=== PATIENT | male | born 1985 | race Hispanic/Latino ===

== ENCOUNTER 2023-08-17 18:47 | Emergency (ER) | payer OTHER, SELFPAY ==
[2023-08-17] MEDS ORDERED: Acetaminophen 500 MG TAB ONE (19:15)
[2023-08-17] MEDS ORDERED: Ibuprofen 800 MG TAB ONE (19:15)
[2023-08-17 19:19] LABS: #Eosinphils 0.1 thou/uL (0.0-0.7); #Monocytes 0.7 thou/uL (0.11-0.59); #Neutrophils 5.3 thou/uL (1.40-6.50); %Basophils 0.6 % (0.0-1.0); %Eosinophils 1.2 % (0.0-10.0); %Lymphocytes 14.3 % (21.0-51.0); %Monocytes 9.4 % (0.0-10.0); %Neutrophils 74.6 % (42.0-75.0); Hematocrit 50.6 % (42.0-52.0); Mean Corpuscular HGB CONC 33.5 g/dL (32.0-36.0); Mean Corpuscular Hemoglobin 31.3 pg (27.0-31.0); Mean Corpuscular Volume 93.5 fl (78.0-98.0); Mean Platelet Volume 8.6 fL (7.4-10.4); Platelet Count 225 10x3/uL (130-400); RBC Distribution Width 12.7 % (11.5-14.5); Red Blood Cell (RBC) Count 5.41 mill/uL (4.70-6.10); White Blood Cell (WBC) Count 7.1 10x3/uL (4.8-10.8)
[2023-08-17 19:29] LABS: INR-International Normal Ratio 0.9; Prothrombin Time 12.8 sec (12.0-14.7)
[2023-08-17 19:31] LABS: PTT 29.9 sec (22.9-36.1)
[2023-08-17] MEDS ORDERED: cefTRIAXone (ROCEPHIN) 2 GM VIAL ONE (19:35)
[2023-08-17] MEDS ORDERED: Sodium Chloride 0.9% 100 ML ONE (19:35)
[2023-08-17] MEDS ORDERED: Ipratropium/Albuterol 3 ML NEB ONE (19:35)
[2023-08-17 19:36] LABS: ALT (SGPT) 48 U/L (8-55); AST (SGOT) 28 U/L (5-34); Albumin 4.3 g/dL (3.5-5.0); Alkaline Phosphatase 72 U/L (40-110); Anion Gap 15 mmol/L (10-20); BUN (Urea Nitrogen) 10 mg/dL (8.9-20.6); Bilirubin, Total 0.8 mg/dL (0.2-1.2); Calc. Creatinine Clearance 0 mL/min (70-130); Carbon Dioxide 24 mmol/L (22-29); Chloride 102 mmol/L (98-107); Estimated GFR 85; Globulin 3.2 g/dL (2.4-3.5); Glucose 115 mg/dL (70-105); Potassium 3.8 mmol/L (3.5-5.1); Protein, Total 7.5 g/dL (6.0-8.3); Sodium 137 mmol/L (136-145)
[2023-08-17 19:44] LABS: Bilirubin Negative (Negative); Blood, Urine Trace (Negative); Clarity Clear (Clear); Glucose, Urine (Dipstick) Negative (Negative); Ketone, Urine Trace mg/dL (Negative); Leukocyte Negative (Negative); Nitrite Negative (Negative); Protein, Urine (Dipstick) 30 mg/dL (Neg-Trace); Specific Gravity, Urine 1.025 (1.005-1.030)
[2023-08-17 19:45] LABS: CAUTI Indications for Culture Alt mental st,lethar
[2023-08-17 19:49] LABS: Bacteria/HPF Rare-Few HPF (None Seen); Mucous/LPF 2+ LPF (<2+); RBC/HPF 0-3 HPF (0-3); Squamous Epithelial 0-3 HPF (0-3); WBC/HPF 0-3 HPF (0-3)
[2023-08-17 19:50] LABS: Urine Culture Reflex No No
[2023-08-17 20:06] LABS: SARS-CoV-2 NAA Rapid Test Not Detected (NotDetected)
[2023-08-17] MEDS ORDERED: Azithromycin 500 MG VIAL ONE (20:15)
[2023-08-17] MEDS ORDERED: Sodium Chloride 0.9% 250 ML 250 ML ONE (20:15)
[2023-08-17] MEDS ORDERED: methylPREDNISolone Sod Succ/PF 125 MG/2 ML VIAL ONE (20:15)
[2023-08-17] MEDS ORDERED: Sodium Chloride 0.9% 1,000 ML ONE ×2 (20:32)
== END 2023-08-17 22:42 | disposition home or self-care (01) ==
LOC: NAV ERS 18:47
DX: J21.0 Acute bronchiolitis due to respiratory syncytial virus (principal); F17.210 Nicotine dependence, cigarettes, uncomplicated; Z20.822 Contact with and (suspected) exposure to COVID-19
CPT/HCPCS: 36415; 71046; 80053; 81001; 83605; 85025; 85610; 85730; 87040; 87070; 87205; 93005; 94640; 94760; 96365; 96367; 96375; J0456; J0696; J2930; J3490; J7050; J7620

== ENCOUNTER 2023-11-26 07:56 | Emergency (ER) | payer SELFPAY ==
[2023-11-26] MEDS ORDERED: Acetaminophen 500 MG TAB ONE (08:13)
== END 2023-11-26 10:10 | disposition home or self-care (01) ==
LOC: NAV ERS 07:56
DX: J11.1 Influenza due to unidentified influenza virus with other respiratory manifestations (principal); F17.210 Nicotine dependence, cigarettes, uncomplicated
CPT/HCPCS: 99283

== ENCOUNTER 2024-07-15 16:45 | Outpatient (CLI) | payer BC | END 2024-07-15 16:46 | disposition home or self-care (01) | LOC: NAV RAD 16:45 | PROVIDERS: ATTEND Student in an Organized Health Care Education/Training Program | DX: M25.562 Pain in left knee (principal); M25.521 Pain in right elbow ==